=== PATIENT | female | born 1970 | race American Indian/Alaskan Native ===

== ENCOUNTER 2017-05-08 07:00 | Day surgery (SDC) | payer BC ==
[2017-05-03 12:21] LABS: Basophils % (Auto) 1.1 % (0.0-1.8); Eosinophils % (Auto) 3.9 % (0.0-4.3); Hematocrit 35.2 % (30.3-42.9); Hemoglobin 11.4 gm/dl (10.1-14.3); Mean Corpuscular HGB Conc 32 % (30-34); Mean Corpuscular Volume 79 fl (79-97); Platelet Count 344 K/mm3 (140-440); Red Blood Count 4.44 M/mm3 (3.65-5.03); Red Cell Distribution Width 14.4 % (13.2-15.2)
[2017-05-03 12:22] LABS: Mean Corpuscular Hemoglobin 26 pg (28-32)
[2017-05-03 12:49] LABS: Anion Gap 18 mmol/L; BUN/Creatinine Ratio 10; Blood Urea Nitrogen 6 mg/dL (7-17); Calcium 9.1 mg/dL (8.4-10.2); Carbon Dioxide 24 mmol/L (22-30); Chloride 99.4 mmol/L (98-107); Glucose 128 mg/dL (65-100); Potassium 3.9 mmol/L (3.6-5.0); Sodium 137 mmol/L (137-145)
--- NOTE | 2017-05-07 22:46 | History and Physical Report ---
History of Present Illness Date of examination: 04/02/17 Chief complaint: desires permanent sterilization History of present illness: Pt is a 46 year old -Citizen Of [place] female who presents for surgical sterilization. She is aware of long-acting reversible methods of contraception and she desires to proceed. 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 Family/Genetic History: diabetes, heart disease Social history: no significant social history Medications and Allergies Allergies Allergy/AdvReac Type Severity Reaction Status Date / Time iodine Allergy Vomiting Verified 04/30/17 11:47 Sulfa (Sulfonamide Allergy Rash Verified 04/30/17 11:47 Antibiotics) Home Medications Medication Instructions Recorded Confirmed Last Taken Type Losartan/Hydrochlorothiazide 1 each PO DAILY 04/22/16 04/30/17 04/21/16 History [Losartan-Hctz 50-12.5 mg Tab] metFORMIN 1,000 mg PO BID 04/22/16 04/30/17 04/21/16 History 100mg Omeprazole [Omeprazole] 40 mg PO BID 04/30/17 04/30/17 Unknown History Active Meds: Active Medications Cefazolin Sodium (Ancef/Sterile Water 2 Gm/20 Ml) 2 gm in 20 mls @ 80 mls/hr IV PREOP NR PRN Reason: Protocol Sodium Chloride (Nacl 0.9% 1000 Ml) 1,000 mls @ 100 mls/hr IV DIRECT PAULO Review of Systems All systems: negative - Vital Signs Vital signs: Vital Signs Temp Pulse Resp BP 98.4 F 80 18 144/90 05/03/17 12:00 05/03/17 12:00 05/03/17 12:00 05/03/17 12:00 Temp Pulse Resp BP Pulse Ox 98.4 F 80 18 144/90 05/03/17 12:00 05/03/17 12:00 05/03/17 12:00 05/03/17 12:00 - Physical Exam Breasts: Positive: deferred Cardiovascular: Regular rate Lungs: Positive: Clear to auscultation Abdomen: Positive: soft (obese) Extremities: Positive: normal Results Result Diagrams: 05/03/17 12:10 05/03/17 12:10 All other labs normal. Assessment and Plan A: Undesired Fertility Diabetes Mellitus Obesity P: Proceed with laparoscopic bilateral tubal ligation and other indicated procedures.
[~2017-05-08 07:00] MED LIST: ANCEF/STERILE WATER 2 GM/20 ML 2 GM/20 ML SYRINGE IV NR; NACL 0.9% 1000 ML 1,000 ML IV SCH
--- NOTE | 2017-05-08 07:48 | Anesthesia Consultation ---
Anesthesia Consult and Med Hx Date of service: 05/08/17 - Airway Anesthetic Teeth Evaluation: Good, Partials Mental/Hyoid Distance: Adequate Mallampati Class: Class I Intubation Access Assessment: Good - Pulmonary Exam CTA: Yes - Cardiac Exam Cardiac Exam: RRR - Pre-Operative Health Status ASA Pre-Surgery Classification: ASA3 Proposed Anesthetic Plan: General - Pulmonary Hx Smoking: Yes (occasional cigar 2x's a month) - Cardiovascular System Hx Hypertension: Yes (x 4 yrs) - Central Nervous System Hx Psychiatric Problems: No - Gastrointestinal Hx Gastroesophageal Reflux Disease: Yes (on meds) - Endocrine Hx Non-Insulin Dependent Diabetes: Yes - Other Systems Hx Alcohol Use: Yes (occas) Hx Cancer: No
--- NOTE | 2017-05-08 07:48 | Anesthesia Day of Surgery ---
Anesthesia Day of Surgery - Day of Surgery Patient Examined: Yes Patient H&P Reviewed: Yes Patient is NPO: Yes
[2017-05-08] MEDS ORDERED: PEPCID IV NR (08:00)
[2017-05-08] MEDS ORDERED: VERSED IV NR (08:00)
[2017-05-08] MEDS ORDERED: LACTATED RINGERS 1,000 ML IV SCH (08:00)
[2017-05-08] MEDS ORDERED: ROBINUL ONE ×3 (08:42→11:20)
[2017-05-08] MEDS ORDERED: XYLOCAINE MPF 2% ONE (08:42)
[2017-05-08] MEDS ORDERED: SUBLIMAZE ONE (08:42)
[2017-05-08] MEDS ORDERED: DECADRON ONE (08:42)
[2017-05-08] MEDS ORDERED: ZOFRAN ONE (08:42)
[2017-05-08] MEDS ORDERED: ZEMURON IV ONE (08:42)
[2017-05-08] MEDS ORDERED: NEOSTIGMINE ONE (08:42)
[2017-05-08] MEDS ORDERED: DIPRIVAN 10 MG/ML IV ONE ×2 (08:42→09:35)
[2017-05-08] MEDS ORDERED: DILAUDID IV PRN (08:55)
[2017-05-08] MEDS ORDERED: PERCOCET 5/325 PO PRN ×2 (09:30→13:00)
[2017-05-08] MEDS ORDERED: ZOFRAN IV PRN (09:30)
[2017-05-08] MEDS ORDERED: TORADOL ONE (09:30)
[2017-05-08] MEDS ORDERED: MARCAINE 0.5% 30 ML INFILTRATI ONE (10:12)
[2017-05-08] MEDS ORDERED: MARCAINE 0.5% INFILTRATI ONE (10:51)
[2017-05-08] MEDS ORDERED: NACL 0.9% IR ONE (10:52)
[2017-05-08] MEDS ORDERED: DILAUDID ONE (11:30)
--- NOTE | 2017-05-08 11:57 | Operative Report ---
Operative Report Operative Report: Date of procedure: May 08, 2017 Preoperative diagnosis: Multiparity desires permanent sterilization 2) Obesity Postoperative diagnosis: 1) Multiparity Desires permanent sterilization 2) Obesity 3) Cervical Polyp Procedure: 1) Laparoscopic bilateral tubal ligation via Filshie clip method 2) Cervical Polypectomy Surgeon: Wendi Earl M.D. Anesthesia: General endotracheal anesthesia Findings: 1) Cervical polyp at external os of the cervix 2) 8-10 wk sized anteverted uterus 3) Normal appearing ovaries and tubes Estimated blood loss: 10 mL IV fluid: 650 mL Urine output: 350 mL clear prior to the procedure Specimens: Cervical polyp to pathology Complications: None. Counts correct 2 Disposition: Stable to PACU Indications for procedure: Pt is a 46 year old -[place] female who presents for surgical sterilization. She is aware of long-acting reversible contraceptives and desires to proceed. Operation in detail: After the risks, benefits, alternatives and complications of the procedure were explained to the patient, she gave informed consent for the procedure. She was subsequently taken to the operating room with her IV noted to be running and placed in the dorsal supine position with sequential compression devices functioning. General endotracheal anesthesia was then induced without difficulty. The patient was then placed in dorsal lithotomy position and prepped and draped in normal sterile fashion. A timeout was then performed. An exam under anesthesia was then performed yielding a 8-10 wk size anteverted uterus. The bladder was then drained yielding 350 mL of clear urine. An open sided speculum was placed into the vagina for visualization of the cervix. At this time a cervical polyp was noted. A single-tooth tenaculum was placed on the anterior lip of the cervix for traction. Polyp forceps were used to remove the polyp which was sent to pathology. The uterus was then sounded to 8 cm. A [employer] uterine manipulator was then placed after gentle dilation of the cervix. The single-tooth tenaculum and speculum were then removed from the vagina. The surgeon's gloves were then changed. Attention was then turned to entry into the abdominal cavity. A 5 mm infraumbilical incision was made with an 11 blade. The skin was grasped on either side of the umbilicus and tented up. The Veres needle was placed into the peritoneal cavity, confirmed with a saline drop test. The abdomen was then insufflated with CO2 gas to a pressure of 15 mmHg. A 5 mm Visiport trocar was then placed. An anatomic survey was then performed with findings as indicated above. A second trocar site was created 4 cm superior to the pubic symphysis in the midline measuring 8 mm. An 8 mm trocar was then placed under direct visualization. The patient was placed in Trendelenburg position. The uterus was elevated, and two Filshie clips were then placed across each fallopian tube at the level of the ampullae. At this time, all instruments were removed from the abdominal cavity. The pneumoperitoneum was released. The incisions were then infiltrated with quarter percent Marcaine. The incisions were then reapproximated with 4-0 Monocryl in a subcuticular fashion. Each incision was then covered with steri strips, a piece of telfa and a tegaderm. The uterine manipulator was then removed, and the cervix was noted to be hemostatic. All instruments were removed from the vagina. At this time the procedure was ended. The patient was placed into the dorsal supine position and extubated without difficulty. She was subsequently taken to the PACU in stable condition. All instrument, needle and lap counts were correct 2.
--- NOTE | 2017-05-08 12:01 | Short Stay Summary ---
Short Stay Documentation Date of service: 05/08/17 - History H&P: dictated Social history: no significant social history - Allergies and Medications Current Medications: Allergies iodine Allergy (Verified 04/30/17 11:47) Vomiting Sulfa (Sulfonamide Antibiotics) Allergy (Verified 04/30/17 11:47) Rash Home Medications Medication Instructions Recorded Confirmed Last Taken Type Losartan/Hydrochlorothiazide 1 each PO DAILY 04/22/16 05/08/17 05/08/17 04:30 History [Losartan-Hctz 50-12.5 mg Tab] metFORMIN 1,000 mg PO BID 04/22/16 05/08/17 05/07/17 09:00 History Omeprazole [Omeprazole] 40 mg PO BID 04/30/17 05/08/17 05/08/17 06:00 History Ibuprofen [Motrin] 800 mg PO Q8HR PRN #30 tablet 05/08/17 Unknown Rx oxyCODONE /ACETAMINOPHEN [Percocet 1 tab PO Q6HR PRN #30 tablet 05/08/17 Unknown Rx 5/325] Active Medications Famotidine (Pepcid) 20 mg IV PREOP NR Stop: 05/08/17 15:00 Last Admin: 05/08/17 08:28 Dose: 20 mg Hydromorphone HCl (Dilaudid) 0.5 mg IV Q10MIN PRN PRN Reason: Pain , Severe (7-10) Stop: 05/08/17 15:00 Cefazolin Sodium (Ancef/Sterile Water 2 Gm/20 Ml) 2 gm in 20 mls @ 80 mls/hr IV PREOP NR PRN Reason: Protocol Stop: 05/08/17 23:59 Sodium Chloride (Nacl 0.9% 1000 Ml) 1,000 mls @ 100 mls/hr IV DIRECT PAULO Last Admin: 05/08/17 08:28 Dose: 100 mls/hr Lactated Ringer's (Lactated Ringers) 1,000 mls @ 100 mls/hr IV DIRECT PAULO Midazolam HCl (Versed) 2 mg IV PREOP NR Stop: 05/08/17 23:59 Last Admin: 05/08/17 08:33 Dose: 2 mg - Physical exam Breasts: deferred - Brief post op/procedure progress note Date of procedure: 05/08/17 Pre-op diagnosis: Undesired Fertility, Obesity Post-op diagnosis: same Procedure: Laparoscopic bilateral tubal ligation via Filshie Clip method Anesthesia: GETA Findings: 1) 8-10 sized anteverted uterus 2) Normal appearing uterus, ovaries and tubes Surgeon: HENRIQUE MARCH Estimated blood loss: minimal (10 mL) Pathology: none Specimen disposition: to lab Condition: stable - Disposition Condition at discharge: Stable Disposition: [id number] TO HOME OR SELFCARE Short Stay Discharge Plan Activity: other (Nothing in vagina x 4 weeks 0) Weight Bearing Status: Full Weight Bearing Diet: regular Wound: keep clean and dry Follow up with: HENRIQUE MARCH MD [Staff Physician] - 05/22/17 (incision check ) Prescriptions: Ibuprofen [Motrin] 800 mg PO Q8HR PRN #30 tablet PRN Reason: Pain oxyCODONE /ACETAMINOPHEN [Percocet 5/325] 1 tab PO Q6HR PRN #30 tablet PRN Reason: Pain
[2017-05-08 14:13] VITALS: BP 134/88
== END 2017-05-08 16:24 | disposition home or self-care (01) ==
LOC: OR 07:00
PROVIDERS: ATTEND Obstetrics & Gynecology
DX: Z30.2 Encounter for sterilization (principal); N84.1 Polyp of cervix uteri; N87.9 Dysplasia of cervix uteri, unspecified; I10 Essential (primary) hypertension; E11.9 Type 2 diabetes mellitus without complications; K21.9 Gastro-esophageal reflux disease without esophagitis; E78.00 Pure hypercholesterolemia, unspecified; F17.200 Nicotine dependence, unspecified, uncomplicated; M19.90 Unspecified osteoarthritis, unspecified site; E66.9 Obesity, unspecified; Z68.37 Body mass index [BMI] 37.0-37.9, adult; Z79.84 Long term (current) use of oral hypoglycemic drugs; Z88.2 Allergy status to sulfonamides; Z91.041 Radiographic dye allergy status; Z79.899 Other long term (current) drug therapy; Z83.3 Family history of diabetes mellitus; Z98.890 Other specified postprocedural states
CPT/HCPCS: 36415; 57500; 58671; 80048; 82962; 84703; 85025; 86850; 86900; 86901; 88305; J0690; J1100; J1170; J1885; J2250; J2405; J2704; J2710; J3010; J7030; J7120

== ENCOUNTER 2017-06-09 12:14 | Emergency (ER) | payer BC ==
[2017-06-09 13:20] LABS: Basophils % (Auto) 1.2 % (0.0-1.8); Hemoglobin 11.7 gm/dl (10.1-14.3); Mean Corpuscular HGB Conc 33 % (30-34); Mean Corpuscular Hemoglobin 26 pg (28-32); Mean Corpuscular Volume 80 fl (79-97); Platelet Count 348 K/mm3 (140-440); Red Cell Distribution Width 14.4 % (13.2-15.2); White Blood Count 4.3 K/mm3 (4.5-11.0)
[2017-06-09 13:31] LABS: Alanine Aminotransferase 19 units/L (7-56); Albumin 4.4 g/dL (3.9-5); Albumin/Globulin Ratio 1.2 %; Alkaline Phosphatase 97 units/L (35-129); Anion Gap 17 mmol/L; BUN/Creatinine Ratio 17; Blood Urea Nitrogen 10 mg/dL (7-17); Calcium 9.7 mg/dL (8.4-10.2); Carbon Dioxide 26 mmol/L (22-30); Chloride 100.7 mmol/L (98-107); Glucose 113 mg/dL (65-100); Lipase 48 units/L (13-60); Potassium 4.3 mmol/L (3.6-5.0); Sodium 139 mmol/L (137-145)
[2017-06-09 13:51] LABS: Bilirubin,Urine NEG (Negative); Blood,Urine NEG (Negative); Ketones,Urine NEG (Negative); Leukocyte Esterase,Urine NEG (Negative); Mucus,Urine FEW /HPF; Nitrite,Urine NEG (Negative); Urobilinogen,Urine < 2.0 mg/dL (<2.0)
[2017-06-09 15:56] VITALS: BP 153/89
== END 2017-06-09 15:54 | disposition left against medical advice (07) ==
LOC: ED 12:14
DX: R10.9 Unspecified abdominal pain (principal); Z53.21 Procedure and treatment not carried out due to patient leaving prior to being seen by health care provider
CPT/HCPCS: 36415; 80053; 81001; 83690; 85025